=== PATIENT | female | born 1995 | race Caucasian/White ===

== ENCOUNTER 2017-12-23 00:56 | Inpatient (IN) ==
[2017-12-23] MEDS ORDERED: Acetaminophen 325 MG TABLET PO PRN (01:05)
[2017-12-23] MEDS ORDERED: Haloperidol Lactate 5 MG/ML VIAL IM PRN (01:05)
[2017-12-23] MEDS ORDERED: *HR* LORazepam 1 MG TABLET PO PRN (01:05)
[2017-12-23] MEDS ORDERED: *HR* LORazepam 2 MG/ML VIAL IM PRN (01:05)
[2017-12-23] MEDS ORDERED: Mag Hydrox/Al Hydrox/Simeth 30 ML UDC PO PRN (01:05)
[2017-12-23] MEDS ORDERED: MOM Conc 10 ML UD.LIQ PO PRN (01:05)
[2017-12-23] MEDS: traZODone 50 MG TABLET PO PRN ×2 (02:23→21:18)
[2017-12-23] MEDS: hydrOXYzine pamoate 25 MG CAPSULE PO PRN (02:23)
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
[2017-12-23] MEDS: Venlafaxine XR (24 HR) 37.5 MG CAP.ER.24H PO SCH (11:09)
[2017-12-23] MEDS: ARIPiprazole 2 MG TABLET PO SCH (21:18)
[2017-12-24] MEDS: Venlafaxine XR (24 HR) 37.5 MG CAP.ER.24H PO SCH (08:31)
--- NOTE | 2017-12-24 11:07 | Psychiatry Progress Note ---
Date of Encounter: 12/24/17 Time of Encounter: 10:50 Subjective Interval history: Patient seen today , case d/w treatment team and patient still depress and isolative and por coping skills. At present is withdrawn , slow speech , depress, no suicidal thoughts any today as per her. she is attending groups , needs to work on self esteem and coping skills. she denies side effects , sleep was better . will increase effexor to 75 mg , patient agreed with plan. Review of Systems Psychiatric: Reports: depression, anxiety, suicidal ideation, change in appetite , auditory hallucinations, visual hallucinations, difficulty concentrating, hopelessness, mood swings Results - Vital Signs Vital Signs: Temp Pulse Resp BP 97.4 F L 99 16 124/84 12/24/17 09:11 12/24/17 09:11 12/24/17 09:11 12/24/17 09:11 Assessment and Plan (1) Depression, major, recurrent, severe with psychosis Current visit: Yes Status: Acute Risks, benefits, side effects, alternatives discussed w/pt: Yes Patient agreeable to treatment: Yes (2) PTSD (post-traumatic stress disorder) Current visit: Yes Status: Chronic Risks, benefits, side effects, alternatives discussed w/pt: Yes Patient agreeable to treatment: Yes Consult Discharge Plan - Plan Referrals: [facility] [Outside] - 12/29/17 11:00 am (The above appointment is with Ashley for outpatient mental health counseling. Please bring photo ID and insurance card. ) Paola Goldman CNP [Primary Care Provider] - 12/29/17 2:30 pm (The above appointment is with Paola Goldman CNP for primary care and medications. Please bring photo ID and insurance card.) Psychiatry Exam - Constitutional Vitals: Temp Pulse Resp BP 97.4 F L 99 16 124/84 12/24/17 09:11 12/24/17 09:11 12/24/17 09:11 12/24/17 09:11 General appearance: obese - Musculoskeletal Gait: slow Station: other Strength & Tone: normal for patient - Psychiatric Patient Orientation: Yes Person, Yes Time, Yes Place Level of alertness: Alert Behavior: cooperative, withdrawn Psychomotor activity: Slowed Eye Contact: Minimal Contact Mood Description: Depressed, Anxious Affect description: constricted Speech Volume: Soft/Quiet Speech pattern: slowed Language & Vocabulary: consistent with education Thought Process: Intact Thought Content: Yes Guilt Attention Span Ability: Capable of Focused Attention Memory Description: Grossly Intact Patient Reliability: Reliable Historian Fund of knowledge: Yes average Intelligence Estimate: Average Judgment: Limited Insight: Partial
[2017-12-24] MEDS ORDERED: Venlafaxine XR (24 HR) 37.5 MG CAP.ER.24H PO ONE (11:15)
[2017-12-24] MEDS: traZODone 50 MG TABLET PO PRN (21:40)
[2017-12-24] MEDS: ARIPiprazole 2 MG TABLET PO SCH (21:40)
[2017-12-24] MEDS: hydrOXYzine pamoate 25 MG CAPSULE PO PRN (23:44)
[2017-12-25] MEDS ORDERED: Venlafaxine XR (24 HR) 37.5 MG CAP.ER.24H PO SCH (09:00)
[2017-12-25 09:34] VITALS: BP 132/75
--- NOTE | 2017-12-25 11:51 | Discharge Summary ---
Date of Encounter: 12/25/17 Time of Encounter: 11:48 Diagnosis - Discharge Diagnosis (1) Depression, major, recurrent, severe with psychosis Status: Acute Medications - Discharge Medications Prescriptions: ARIPiprazole [Abilify] 2 mg PO HS #7 tablet hydrOXYzine pamoate [HydrOXYzine Pamoate] 25 mg PO TID PRN #21 capsule PRN Reason: Anxiety traZODone [TraZODone] 50 mg PO HS PRN #7 tablet PRN Reason: Insomnia Venlafaxine XR (24 HR) [Effexor Xr] 75 mg PO DAILY #7 cap.er.24h Ferrous Gluconate 324 mg PO DAILY 12/23/17 [History] ARIPiprazole [Abilify] 2 mg PO HS #7 tablet 12/25/17 [Rx] Venlafaxine XR (24 HR) [Effexor Xr] 75 mg PO DAILY #7 cap.er.24h 12/25/17 [Rx] hydrOXYzine pamoate [HydrOXYzine Pamoate] 25 mg PO TID PRN #21 capsule 12/25/17 [Rx] traZODone [TraZODone] 50 mg PO HS PRN #7 tablet 12/25/17 [Rx] 3 Allergy/AdvReac Type Severity Reaction Status Date / Time No Known Drug Allergies Allergy none Verified 12/23/17 01:05 Provider Date of admission: 12/23/17 00:56 Primary care physician: PCP NONE Discharging clinician: Hellen Wooten Psychiatry Exam - Constitutional Vitals: Temp Pulse Resp BP 98.6 F 75 16 132/75 12/25/17 09:00 12/25/17 09:00 12/25/17 09:00 12/25/17 09:00 General appearance: age & developmentally appropriate, well-groomed, well- nourished - Musculoskeletal Gait: normal Station: relaxed Strength & Tone: normal for patient - Psychiatric Patient Orientation: Yes Person, Yes Time, Yes Place Level of alertness: Alert Behavior: calm, cooperative Psychomotor activity: Normal Eye Contact: Maintains Eye Contact Mood Description: Euthymic/stable Affect description: congruent with mood, full range Speech Volume: Normal Speech pattern: normal rate, normal rhythm, normal tone, fluent, spontaneous Language & Vocabulary: consistent with education Thought Process: Linear, Goal Oriented Thought Content: No Suicidal ideation, No Homicidal ideation, No Overt delusions Perceptual Disturbances: No Auditory hallucinations, No Visual hallucinations Attention Span Ability: Capable of Focused Attention Memory Description: Grossly Intact Patient Reliability: Reliable Historian Fund of knowledge: Yes abstraction ability, Yes aware of current events Intelligence Estimate: Average Judgment: Fair Insight: Partial Hospital Course Hospital course: Ms. Rangel is a 22 year old female who was admitted from her counselor's office secondary to SI. Client was started on Effexor and Abilify with positive results. Today she is denying SI. Asking for discharge. Staff spoke with mother and she is supportive. Client is future oriented. However, she has no motivation. Only motivated to get benefits. Does not want to work. Asking for disability and housing. Asking for hospital staff to tell [employer] that she is too impaired to work. Not interested in any kind of vocational assessment. Dependent personality characteristics. However, she does not present as if she is a danger to self or others at this time. Denies SI/HI ideation, plan, or intent. No evidence of psychosis. - Time Spent with Patient Total time spent providing and/or coordinating discharge services: Assessment and Plan - Patient/Caregiver Discharge Instructions Activity: resume usual activities as tolerated Diet: regular diet - Follow up Plan Follow up with: Kiel Britton [facility] [Outside] - 12/29/17 11:00 am (The above appointment is with Ashley for outpatient mental health counseling. Please bring photo ID and insurance card. ) Paola Goldman CNP [Advanced Practice Nurse] - 12/29/17 2:30 pm (The above appointment is with Paola Goldman CNP for primary care and medications. Please bring photo ID and insurance card.) Overall status at discharge: Stable Disposition: Home, Self-Care Quality - Multiple Antipsychotics Patient discharged on 2 or more antipsychotic medications: No Procedures - Procedures Procedures: Medication Management, Crisis Stabilization, Supportive Therapy, Group Therapy
== END 2017-12-25 15:20 | disposition home or self-care (01) | DRG 751 ==
LOC: 1ANU 00:56
PROVIDERS: ADMIT Psychiatry & Neurology Psychiatry; ATTEND Psychiatry & Neurology Psychiatry

== ENCOUNTER 2018-01-27 17:51 | Inpatient (IN) ==
[2018-01-27 18:45] LABS: Basophils # 0.1 K/mcL (0.0-0.2); Basophils % 0.4 %; Eosinophils # 0.5 K/mcL (0.0-0.6); Eosinophils % 3.4 %; Hematocrit 35.6 % (35.3-44.9); Immature Granulocytes % 0.6 % (0-4); Lymphocytes % 22.2 %; Mean Corpuscular HGB Conc 30.9 g/dL (31.6-35.5); Mean Corpuscular Hemoglobin 22.1 pg (28.0-33.3); Mean Corpuscular Volume 71.6 fL (83.0-100.0); Mean Platelet Volume 9.9 fL (9.4-12.4); Monocytes # 0.6 K/mcL (0.0-1.3); Monocytes % 4.6 %; Neutrophils # 9.3 K/mcL (1.6-8.9); Platelet Count 379 K/mcL (140-400); Red Blood Count 4.97 M/mcL (3.82-4.97); Red Cell Distribution Width 17.9 % (11.5-14.5); Segmented Neutrophils % 68.8 %
[2018-01-27 18:51] LABS: Bilirubin,Urine Negative (Negative); Blood,Urine Negative (Negative); Clarity,Urine Clear (Clear); Color,Urine Yellow (Yellow); Glucose,Urine (UA) Normal (Normal); Ketones,Urine Negative (Negative); Leukocyte Esterase,Urine Negative (Negative); Nitrite,Urine Negative (Negative); Protein,Urine Negative (Neg-Trace); Specific Gravity,Urine 1.026 (1.010-1.025); Urobilinogen,Urine Normal (Normal)
[2018-01-27 19:02] LABS: Acetaminophen < 10 mcg/mL (10-20); BUN/Creatinine Ratio 17 (6-26); Blood Urea Nitrogen 13 mg/dL (6-20); Calcium 9.5 mg/dL (8.6-10.3); Carbon Dioxide 25 mEq/L (23-29); Chloride 105 mEq/L (98-107); Ethanol < 10 mg/dL (Less than 10); Glucose 122 mg/dL (70-105); Osmolality,Calculated 287 (280-300); Potassium 3.8 mEq/L (3.5-5.1); Salicylate < 2.5 mg/dL (15.0-30.0); Sodium 138 mEq/L (136-145); eGFR For Non-African Americans > 60 (> 60)
[2018-01-27 19:44] LABS: Amphetamine Screen,Urine Negative ng/mL (Cutoff=1000); Barbiturate Screen,Urine Negative ng/mL (Cutoff=200); Benzodiazepines Screen,Urine Negative ng/mL (Cutoff=200); Cannabinoid Screen,Urine Negative ng/mL (Cutoff = 50); Cocaine Screen,Urine Negative ng/mL (Cutoff= 300); Opiate Screen,Urine Negative ng/mL (Cutoff=300); Phencyclidine Screen,Urine Negative ng/mL (Cutoff=25)
--- NOTE | 2018-01-27 21:23 | Emergency Department Note ---
Disposition Clinical Impression: Suicidal ideation, Hallucination Disposition: Admitted As Inpatient Time of Disposition: 22:44 Psych HPI - General Chief Complaint: ED Psychiatric Symptoms Stated Complaint: psych eval/self harm Time Seen by Provider: 01/27/18 18:20 Source: patient, EMS Nursing Notes Reviewed: Yes Vital Signs Reviewed: Yes - History of Present Illness HPI Narrative: 22-year-old female presents emergency department with concern for self-harm. Patient states that she cut herself on her left upper extremity today. Patient states that she is hearing a lot of voices that are toner both good and bad things. They are not specifically commanding her to do anything however. She does report having suicidal ideations. No homicidal ideations at this time. No visual hallucinations. - Related Data Home Medications Medication Instructions Recorded Confirmed Ferrous Gluconate 324 mg PO DAILY 12/23/17 01/27/18 Previous Rx's Medication Instructions Recorded ARIPiprazole [Abilify] 2 mg PO HS #7 tablet 12/25/17 Venlafaxine XR (24 HR) [Effexor Xr] 75 mg PO DAILY #7 cap.er.24h 12/25/17 hydrOXYzine pamoate [HydrOXYzine 25 mg PO TID PRN #21 capsule 12/25/17 Pamoate] traZODone [TraZODone] 50 mg PO HS PRN #7 tablet 12/25/17 Allergies Allergy/AdvReac Type Severity Reaction Status Date / Time No Known Drug Allergies Allergy none Verified 12/23/17 01:05 All systems ED: reviewed and negative except as stated. Review of Systems: As Per HPI Constitutional: Denies: fever Cardiovascular: Denies: chest pain Respiratory: Denies: cough Gastrointestinal: Denies: abdominal pain Genitourinary: Denies: urgency, dysuria, frequency Musculoskeletal: Denies: back pain Neurological: Denies: headache Past Medical History - Past Medical History Medical history: Reports: other Psychiatric history: Reports: anxiety, depression, PTSD, prior suicide attempt, schizophrenia, previous psychiatric hospitalization - Social History Smoking Status: Current every day smoker Smokeless Tobacco Status: No Alcohol use: Reports: rarely Drug use: Reports: marijuana Physical Exam - General Limitations: no limitations General appearance: alert, in no apparent distress - Head Head exam: normocephalic - Eye Eye exam: Present: EOMI - ENT ENT exam: normal oropharynx - Neck Neck exam: Present: trachea midline - Chest Chest inspection: Present: symmetric chest wall rise - Respiratory Respiratory exam: Present: normal lung sounds bilaterally. Absent: respiratory distress - Cardiovascular Cardiovascular exam: Present: normal rhythm, tachycardia, normal heart sounds - Abdominal Exam Abdominal exam: Present: soft, Non-Tender. Absent: distention, guarding, rebound, rigidity - Extremities Exam Extremities exam: Present: other (Appears to be scars on the left and upper arm that are healed. There is a small abrasion on the left upper extremity. Left upper extremities are neurovascular intact.) Course Vital Signs Temperature 98.3 F 01/27/18 17:54 Pulse Rate 104 01/27/18 17:54 Respiratory Rate 16 01/27/18 17:54 Blood Pressure 133/95 01/27/18 17:54 O2 Sat by Pulse Oximetry 98 01/27/18 17:54 Temperature 97.0 F L 01/27/18 22:29 Pulse Rate 106 01/27/18 22:10 Respiratory Rate 20 01/27/18 22:10 Blood Pressure 151/83 01/27/18 22:10 O2 Sat by Pulse Oximetry 98 01/27/18 22:10 Oxygen Delivery Oxygen Delivery Room Air Psych - MDM Narrative Medical decision making narrative: 22-year-old female presents emergency department with chief complaint of suicidal ideations, self harm. Patient was offered tetanus shot but declines it. Left upper extremity where she cut her arm did not have an area that could be sutured. We did place pink slip on the patient. Patient has mild leukocytosis of 13.5, do not suspect any infection at this time as she is afebrile and not having any symptoms of cough, sputum production, nausea, vomiting, dysuria, urinary frequeny, urinary urgency. Patient had negative Tylenol level. Salicylates were negative. Kidney function was good. Urinalysis not reveal any evidence of infection. Ethanol level was normal. I psychiatric team came down to evaluate patient. They agree to accept her for admission. Patient hemodynamically stable and does not appear to be in any distress at time of admission. Vital Signs Temperature 98.3 F 01/27/18 17:54 Pulse Rate 104 01/27/18 17:54 Respiratory Rate 16 01/27/18 17:54 Blood Pressure 133/95 01/27/18 17:54 O2 Sat by Pulse Oximetry 98 01/27/18 17:54 Temperature 97.0 F L 01/27/18 22:29 Pulse Rate 106 01/27/18 22:10 Respiratory Rate 20 01/27/18 22:10 Blood Pressure 151/83 01/27/18 22:10 O2 Sat by Pulse Oximetry 98 01/27/18 22:10 Oxygen Delivery Oxygen Delivery Room Air - Lab Data Result diagrams: 01/27/18 18:33 01/27/18 18:33 Lab Results 01/27/18 01/27/18 01/27/18 Range/Units 18:33 18:33 18:39 WBC 13.5 H (4.3-11.1) K/mcL RBC 4.97 (3.82-4.97) M/mcL Hgb 11.0 L (11.5-15.4) g/dL Hct 35.6 (35.3-44.9) % MCV 71.6 L (83.0-100.0) fL MCH 22.1 L (28.0-33.3) pg MCHC 30.9 L (31.6-35.5) g/dL RDW 17.9 H (11.5-14.5) % Plt Count 379 (140-400) K/mcL MPV 9.9 (9.4-12.4) fL Immature Gran % 0.6 (0-4) % Seg Neutrophils % 68.8 % Lymphocytes % 22.2 % Monocytes % 4.6 % Eosinophils % 3.4 % Basophils % 0.4 % Neutrophils # 9.3 H (1.6-8.9) K/mcL Lymphocytes # 3.0 (0.6-4.6) K/mcL Monocytes # 0.6 (0.0-1.3) K/mcL Eosinophils # 0.5 (0.0-0.6) K/mcL Basophils # 0.1 (0.0-0.2) K/mcL Sodium 138 (136-145) mEq/L Potassium 3.8 (3.5-5.1) mEq/L Chloride 105 (98-107) mEq/L Carbon Dioxide 25 (23-29) mEq/L BUN 13 (6-20) mg/dL Creatinine 0.78 (0.60-1.20) mg/dL Est GFR ( Amer) > 60 (> 60) Est GFR (Non-Af Amer) > 60 (> 60) BUN/Creatinine Ratio 17 (6-26) Glucose 122 H (70-105) mg/dL Calculated Osmolality 287 (280-300) Calcium 9.5 (8.6-10.3) mg/dL Urine Color Yellow (Yellow) Urine Clarity Clear (Clear) Urine pH 6.0 (5.0-8.0) pH Units Ur Specific [place] 1.026 H (1.010-1.025) Urine Protein Negative (Neg-Trace) mg/dL Urine Glucose (UA) Normal (Normal) mg/dL Urine Ketones Negative (Negative) mg/dL Urine Blood Negative (Negative) Urine Nitrite Negative (Negative) Urine Bilirubin Negative (Negative) Urine Urobilinogen Normal (Normal) mg/dL Ur Leukocyte Esterase Negative (Negative) Urine Test (Negative) Salicylates < 2.5 L (15.0-30.0) mg/dL Urine Opiates Screen (Gnpovk=183) ng/mL Acetaminophen < 10 L (10-20) mcg/mL Ur Barbiturates Screen (Oskwjh=656) ng/mL Ur Phencyclidine Scrn (Cutoff=25) ng/mL Ur Amphetamines Screen (Pbelgr=4326) ng/mL U Benzodiazepines Scrn (Bbnmdb=455) ng/mL Urine Cocaine Screen (Cutoff= 300) ng/mL U Marijuana (THC) Screen (Cutoff = 50) ng/mL Ur Drug Screen Interp Ethyl Alcohol < 10 (Less than 10) mg/dL 01/27/18 01/27/18 Range/Units 18:39 18:39 WBC (4.3-11.1) K/mcL RBC (3.82-4.97) M/mcL Hgb (11.5-15.4) g/dL Hct (35.3-44.9) % MCV (83.0-100.0) fL MCH (28.0-33.3) pg MCHC (31.6-35.5) g/dL RDW (11.5-14.5) % Plt Count (140-400) K/mcL MPV (9.4-12.4) fL Immature Gran % (0-4) % Seg Neutrophils % % Lymphocytes % % Monocytes % % Eosinophils % % Basophils % % Neutrophils # (1.6-8.9) K/mcL Lymphocytes # (0.6-4.6) K/mcL Monocytes # (0.0-1.3) K/mcL Eosinophils # (0.0-0.6) K/mcL Basophils # (0.0-0.2) K/mcL Sodium (136-145) mEq/L Potassium (3.5-5.1) mEq/L Chloride (98-107) mEq/L Carbon Dioxide (23-29) mEq/L BUN (6-20) mg/dL Creatinine (0.60-1.20) mg/dL Est GFR ( Amer) (> 60) Est GFR (Non-Af Amer) (> 60) BUN/Creatinine Ratio (6-26) Glucose (70-105) mg/dL Calculated Osmolality (280-300) Calcium (8.6-10.3) mg/dL Urine Color (Yellow) Urine Clarity (Clear) Urine pH (5.0-8.0) pH Units Ur Specific [place] (1.010-1.025) Urine Protein (Neg-Trace) mg/dL Urine Glucose (UA) (Normal) mg/dL Urine Ketones (Negative) mg/dL Urine Blood (Negative) Urine Nitrite (Negative) Urine Bilirubin (Negative) Urine Urobilinogen (Normal) mg/dL Ur Leukocyte Esterase (Negative) Urine Test Negative (Negative) Salicylates (15.0-30.0) mg/dL Urine Opiates Screen Negative (Hmswjn=604) ng/mL Acetaminophen (10-20) mcg/mL Ur Barbiturates Screen Negative (Vmtcpm=366) ng/mL Ur Phencyclidine Scrn Negative (Cutoff=25) ng/mL Ur Amphetamines Screen Negative (Akbaxw=6874) ng/mL U Benzodiazepines Scrn Negative (Rfngeh=393) ng/mL Urine Cocaine Screen Negative (Cutoff= 300) ng/mL U Marijuana (THC) Screen Negative (Cutoff = 50) ng/mL Ur Drug Screen Interp See Below Ethyl Alcohol (Less than 10) mg/dL Psychiatric Medical Clearance - Medical Clearance Checklist Medical History: No Social History Section defined Current Vitals: Last Vital Signs Temp 97.0 F L 01/27/18 22:29 Pulse 106 01/27/18 22:10 Resp 20 01/27/18 22:10 BP 151/83 01/27/18 22:10 Pulse Ox 98 01/27/18 22:10 Psychiatric Lab Panel: Drug Levels and Toxicity 01/27/18 01/27/18 18:33 18:39 Urine Opiates Screen Negative Acetaminophen < 10 L Ur Barbiturates Screen Negative Ur Phencyclidine Scrn Negative Ur Amphetamines Screen Negative U Benzodiazepines Scrn Negative Urine Cocaine Screen Negative U Marijuana (THC) Screen Negative Ethyl Alcohol < 10 Abnormal Labs: Abnormal lab results WBC 13.5 K/mcL (4.3-11.1) H 01/27/18 18:33 Hgb 11.0 g/dL (11.5-15.4) L 01/27/18 18:33 MCV 71.6 fL (83.0-100.0) L 01/27/18 18:33 MCH 22.1 pg (28.0-33.3) L 01/27/18 18:33 MCHC 30.9 g/dL (31.6-35.5) L 01/27/18 18:33 RDW 17.9 % (11.5-14.5) H 01/27/18 18:33 Neutrophils # 9.3 K/mcL (1.6-8.9) H 01/27/18 18:33 Glucose 122 mg/dL (70-105) H 01/27/18 18:33 Ur Specific [place] 1.026 (1.010-1.025) H 01/27/18 18:39 Salicylates < 2.5 mg/dL (15.0-30.0) L 01/27/18 18:33 Acetaminophen < 10 mcg/mL (10-20) L 01/27/18 18:33 Attestation Statement - Attestation Attestation: Patient was seen with resident physician. I reviewed the history, physical, assessment and plan, and agree with the findings. I also personally evaluated this patient and had [id number] time with this patient. 22-year-old female presents emergency Department increasing hallucinations and cutting. Patient is a history of same. Patient denies suicidal ideation to me but did acknowledge she had some to resident physician. She does acknowledge increased hallucinations. She has no homicidal ideation either. Her cutting is very superficial and typically on her left forearm. Another symptomatically complaints at this time. Review systems as above remainder negative. Physical exam vital signs are stable. ENT is unremarkable. Heart regular rhythm and rate. Lungs clear. Abdomen soft nontender. Extremities unremarkable. Neurologically intact. Psych depressed. ED course laboratory testing was essentially unremarkable. We contacted [facility] he did not evaluation. They will ultimately determine disposition for the patient. Hemodynamically she remained stable from a medical perspective and in no acute distress. Patient did have an incidental finding of a mildly elevated white cell count of 13.5. At this point and I will believe this represents infection other abnormalities is likely stress response. Other should not impact patient's ability to be successfully treated psychiatric unit. After one a evaluation they did want to admit the patient. I agree with the resident physician assessment and plan.
[2018-01-27] MEDS ORDERED: Haloperidol Lactate 5 MG/ML VIAL IM PRN (22:26)
[2018-01-27] MEDS ORDERED: Mag Hydrox/Al Hydrox/Simeth 30 ML UDC PO PRN (22:26)
[2018-01-27] MEDS ORDERED: Ibuprofen 400 MG TABLET PO PRN (22:26)
[2018-01-27] MEDS ORDERED: *HR* LORazepam 2 MG/ML VIAL IM PRN (22:26)
[2018-01-27] MEDS ORDERED: MOM Conc 10 ML UD.LIQ PO PRN (22:26)
[2018-01-27] MEDS ORDERED: *HR* LORazepam 1 MG TABLET PO PRN (22:26)
[2018-01-27] MEDS ORDERED: traZODone 50 MG TABLET PO PRN (22:28)
[2018-01-27] MEDS ORDERED: hydrOXYzine pamoate 25 MG CAPSULE PO PRN (22:28)
[2018-01-28] MEDS ORDERED: Venlafaxine XR (24 HR) 75 MG CAP.ER.24H PO SCH (09:00)
[2018-01-28] MEDS ORDERED: ARIPiprazole 2 MG TABLET PO SCH ×2 (14:06→21:00)
[2018-01-28] MEDS ORDERED: traZODone 50 MG TABLET PO PRN (14:07)
--- NOTE | 2018-01-28 14:19 | Psychiatry Progress Note ---
Date of Encounter: 01/28/18 Time of Encounter: 14:00 Review of Systems Psychiatric: Reports: depression, memory loss, irritability Results - Vital Signs Vital Signs: Temp Pulse Resp BP Pulse Ox 97.2 F L 84 16 119/72 98 01/28/18 09:00 01/28/18 09:00 01/28/18 09:00 01/28/18 09:00 01/27/18 22:10 Consult Discharge Plan - Plan Referrals: [facility] [Outside] - 02/23/18 3:30 pm (The above appointment is with Sera Lobo,for psychiatric assessment and medication management. Please bring photo ID and insurance card to your appointment.) Psychiatry Exam - Constitutional Vitals: Temp Pulse Resp BP Pulse Ox 97.2 F L 84 16 119/72 98 01/28/18 09:00 01/28/18 09:00 01/28/18 09:00 01/28/18 09:00 01/27/18 22:10 General appearance: age & developmentally appropriate, well-groomed - Musculoskeletal Gait: normal Station: other Strength & Tone: normal for patient - Psychiatric Patient Orientation: Yes Person, Yes Time, Yes Place Level of alertness: Alert Behavior: calm, suspicious, withdrawn Psychomotor activity: Slowed Eye Contact: Maintains Eye Contact Mood Description: Depressed Affect description: congruent with mood, incongruent with mood Speech Volume: Normal Speech pattern: normal rate Language & Vocabulary: consistent with education Thought Process: Intact Perceptual Disturbances: Yes Auditory hallucinations Attention Span Ability: Capable of Focused Attention Patient Reliability: Reliable Historian Fund of knowledge: Yes abstraction ability Intelligence Estimate: Average
--- NOTE | 2018-01-28 14:32 | Psychiatry History & Physical ---
Date of Encounter: 01/28/18 Time of Encounter: 14:00 History of Present Illness Patient Stated Chief Complaint: i want to change my med Medicare Admission Attestation: For traditional Medicare patients the provided hospital inpatient services are reasonable and necessary and in the case of services not specified as inpatient -only under 42 CFR 419.22 (n), that they are appropriately provided as inpatient services in accordance 42 CFR 412.3. For Critical Access Hospital the patient may reasonably be expected to be discharged or transferred to a hospital within 96 hours after admission to the Critical Access Hospital. Admitted From: Emergency Dept Plans for Post Hospital Care: Home History of Present Illness: Ms. Rangel is a 22 year old female . Patient states chief complaint is that she feels that she needs her medicines changed. She does not feel that they are working. She came after cutting at the recommendation of the local clinic. 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 The patient has had depressive symptoms suicidal ideation and hearing voices The patient was at the [facility] clinic on respite and was discovered to be cutting her left forearm. The patient denies that this was a suicide attempt but was somewhat despondent about her current situation and future plans. Today the patient presents and says that she is nervous on the unit she does not feel that she is doing well and should like to go back to [facility]. The patient is also indicated that she would like to and change her medicines. Specifically she is on Effexor XR 75 mg every morning Abilify 2 mg every at bedtime and trazodone 50 mg daily at bedtime. The patient has been told that she has bipolar disorder PTSD major depression. I asked her several questions and this the patient responded in the affirmative to 9 of 9 borderline personality disorder traits. This cross-sectional analysis suggests that she has some personality traits but does not necessarily indicate that she has the personality disorder. The patient is involved in dialectical behavioral therapy and is trying to acquire some coping skills. She notes depressive symptoms at this time but no plans to kill herself. She notes hearing voices but no command hallucinations to harm herself. He reports no plans to harm herself on the unit. And she would like to transfer to an outpatient level of care she notes no side effects or current medicines. Past Med Surg Social Fam HX - Past Medical History Medical history: other - Past Psychiatric History Psychiatric history: Reports: previous psychiatric hospitalization Family psychiatric history: Unknown Family History of Suicide: Unknown - Social History Smoking Status: Current every day smoker Smokeless Tobacco Status: No Alcohol use: rarely Drug use: marijuana Occupational status: student Current living situation: Other Activity Level: Independent ambulation Recent Out of Country Travel Within the Last 8 Weeks: No Exposure or Possible Exposure to Illness During Travel: No - Family History Father Hx Family Musculoskeletal Disorders: Yes (back issues) Medications & Allergies Ferrous Gluconate 324 mg PO DAILY 12/23/17 [History] ARIPiprazole [Abilify] 2 mg PO HS #7 tablet 12/25/17 [Rx] Venlafaxine XR (24 HR) [Effexor Xr] 75 mg PO DAILY #7 cap.er.24h 12/25/17 [Rx] hydrOXYzine pamoate [HydrOXYzine Pamoate] 25 mg PO TID PRN #21 capsule 12/25/17 [Rx] traZODone [TraZODone] 50 mg PO HS PRN #7 tablet 12/25/17 [Rx] 3 Allergy/AdvReac Type Severity Reaction Status Date / Time No Known Drug Allergies Allergy none Verified 12/23/17 01:05 Review of Systems Psychiatric: Reports: depression, anxiety, difficulty concentrating, hopelessness, mood swings Exam - HEENT Head exam IM: Present: atraumatic, normal inspection, normocephalic Eye exam IM: Present: EOMI ENT exam IM: Present: mucous membranes dry - Neurological Neurological exam: Present: CN II-XII intact - Additional Information Additional Information: obese female - Constitutional Vitals: Temp Pulse Resp BP Pulse Ox 97.2 F L 84 16 119/72 98 01/28/18 09:00 01/28/18 09:00 01/28/18 09:00 01/28/18 09:00 01/27/18 22:10 General appearance: age & developmentally appropriate, obese - Musculoskeletal Gait: normal Station: relaxed Strength & Tone: normal for patient - Psychiatric Patient Orientation: Yes Person, Yes Time, Yes Place Level of alertness: Alert Behavior: nervous, withdrawn Psychomotor activity: Slowed Eye Contact: Maintains Eye Contact Mood Description: Depressed, Anxious Affect description: congruent with mood, full range, dysphoric Speech Volume: Normal Speech pattern: normal rate, normal rhythm, normal tone, fluent, spontaneous Language & Vocabulary: consistent with education Thought Process: Linear, Goal Oriented Thought Content: No Suicidal ideation, No Homicidal ideation, No Overt delusions Perceptual Disturbances: Yes Auditory hallucinations, No Visual hallucinations Attention Span Ability: Capable of Focused Attention Memory Description: Grossly Intact Patient Reliability: Reliable Historian Fund of knowledge: Yes abstraction ability, Yes average, Yes aware of current events Intelligence Estimate: Average Judgment: Fair Insight: Partial Results - Labs Labs: Laboratory Last Values WBC 13.5 K/mcL (4.3-11.1) H 01/27/18 18:33 RBC 4.97 M/mcL (3.82-4.97) 01/27/18 18:33 Hgb 11.0 g/dL (11.5-15.4) L 01/27/18 18:33 Hct 35.6 % (35.3-44.9) 01/27/18 18:33 MCV 71.6 fL (83.0-100.0) L 01/27/18 18: MCH 22.1 pg (28.0-33.3) L 01/27/18 18:33 MCHC 30.9 g/dL (31.6-35.5) L 01/27/18 18:33 RDW 17.9 % (11.5-14.5) H 01/27/18 18:33 Plt Count 379 K/mcL (140-400) 01/27/18 18:33 MPV 9.9 fL (9.4-12.4) 01/27/18 18:33 Immature Gran % 0.6 % (0-4) 01/27/18 18:33 Seg Neutrophils % 68.8 % 01/27/18 18:33 Lymphocytes % 22.2 % 01/27/18 18:33 Monocytes % 4.6 % 01/27/18 18:33 Eosinophils % 3.4 % 01/27/18 18:33 Basophils % 0.4 % 01/27/18 18:33 Neutrophils # 9.3 K/mcL (1.6-8.9) H 01/27/18 18:33 Lymphocytes # 3.0 K/mcL (0.6-4.6) 01/27/18 18:33 Monocytes # 0.6 K/mcL (0.0-1.3) 01/27/18 18:33 Eosinophils # 0.5 K/mcL (0.0-0.6) 01/27/18 18:33 Basophils # 0.1 K/mcL (0.0-0.2) 01/27/18 18:33 Sodium 138 mEq/L (136-145) 01/27/18 18:33 Potassium 3.8 mEq/L (3.5-5.1) 01/27/18 18:33 Chloride 105 mEq/L (98-107) 01/27/18 18:33 Carbon Dioxide 25 mEq/L (23-29) 01/27/18 18:33 BUN 13 mg/dL (6-20) 01/27/18 18:33 Creatinine 0.78 mg/dL (0.60-1.20) 01/27/18 18:33 Est GFR ( Amer) > 60 (> 60) 01/27/18 18:33 Est GFR (Non-Af Amer) > 60 (> 60) 01/27/18 18:33 BUN/Creatinine Ratio 17 (6-26) 01/27/18 18: Glucose 122 mg/dL (70-105) H 01/27/18 18:33 Calculated Osmolality 287 (280-300) 01/27/18 18:33 Calcium 9.5 mg/dL (8.6-10.3) 01/27/18 18:33 Urine Color Yellow (Yellow) 01/27/18 18:39 Urine Clarity Clear (Clear) 01/27/18 18:39 Urine pH 6.0 pH Units (5.0-8.0) 01/27/18 18:39 Ur Specific [place] 1.026 (1.010-1.025) H 01/27/18 18:39 Urine Protein Negative mg/dL (Neg-Trace) 01/27/18 18:39 Urine Glucose (UA) Normal mg/dL (Normal) 01/27/18 18:39 Urine Ketones Negative mg/dL (Negative) 01/27/18 18:39 Urine Blood Negative (Negative) 01/27/18 18:39 Urine Nitrite Negative (Negative) 01/27/18 18:39 Urine Bilirubin Negative (Negative) 01/27/18 18:39 Urine Urobilinogen Normal mg/dL (Normal) 01/27/18 18:39 Ur Leukocyte Esterase Negative (Negative) 01/27/18 18:39 Urine Test Negative (Negative) 01/27/18 18:39 Salicylates < 2.5 mg/dL (15.0-30.0) L 01/27/18 18:33 Urine Opiates Screen Negative ng/mL (Ekvfte=701) 01/27/18 18:39 Acetaminophen < 10 mcg/mL (10-20) L 01/27/18 18:33 Ur Barbiturates Screen Negative ng/mL (Wdjuzk=631) 01/27/18 18:39 Ur Phencyclidine Scrn Negative ng/mL (Cutoff=25) 01/27/18 18:39 Ur Amphetamines Screen Negative ng/mL (Xvubho=3910) 01/27/18 18:39 U Benzodiazepines Scrn Negative ng/mL (Htqqgb=943) 01/27/18 18:39 Urine Cocaine Screen Negative ng/mL (Cutoff= 300) 01/27/18 18:39 U Marijuana (THC) Screen Negative ng/mL (Cutoff = 50) 01/27/18 18:39 Ur Drug Screen Interp See Below 01/27/18 18:39 Ethyl Alcohol < 10 mg/dL (Less than 10) 01/27/18 18:33
[2018-01-28] MEDS ORDERED: ARIPiprazole 5 MG TABLET PO SCH (21:00)
[2018-01-29] MEDS ORDERED: Nicotine 14 MG PATCH.TD24 TD SCH (09:00)
[2018-01-29] MEDS ORDERED: Venlafaxine XR (24 HR) 150 MG CAP.ER.24H PO SCH (09:00)
[2018-01-29 10:48] VITALS: BP 128/86
--- NOTE | 2018-01-29 10:58 | Discharge Summary ---
Date of Encounter: 01/29/18 Time of Encounter: 10:45 Diagnosis - Discharge Diagnosis (1) Depression, major, recurrent, severe with psychosis Status: Acute (2) Suicidal ideation Status: Resolved Medications - Discharge Medications Prescriptions: ARIPiprazole [Abilify] 5 mg PO HS 30 Days #30 tablet traZODone [TraZODone] 100 mg PO HS PRN 30 Days #30 tablet PRN Reason: Insomnia Venlafaxine XR (24 HR) [Effexor Xr] 150 mg PO DAILY 30 Days #30 cap.er.24h Ferrous Gluconate 324 mg PO DAILY 12/23/17 [History] hydrOXYzine pamoate [HydrOXYzine Pamoate] 25 mg PO TID PRN #21 capsule 12/25/17 [Rx] ARIPiprazole [Abilify] 5 mg PO HS 30 Days #30 tablet 01/29/18 [Rx] Venlafaxine XR (24 HR) [Effexor Xr] 150 mg PO DAILY 30 Days #30 cap.er.24h 01/29 [Rx] traZODone [TraZODone] 100 mg PO HS PRN 30 Days #30 tablet 01/29/18 [Rx] 3 Allergy/AdvReac Type Severity Reaction Status Date / Time No Known Drug Allergies Allergy none Verified 12/23/17 01:05 Provider Date of admission: 01/27/18 22:15 Primary care physician: PCP NONE Discharging clinician: Cade Garcia Psychiatry Exam - Constitutional Vitals: Temp Pulse Resp BP Pulse Ox 97.3 F L 83 16 128/86 98 01/29/18 09:00 01/29/18 09:00 01/29/18 09:00 01/29/18 09:00 01/27/18 22:10 General appearance: age & developmentally appropriate, well-groomed, well- nourished - Musculoskeletal Gait: normal Station: relaxed Strength & Tone: normal for patient - Psychiatric Patient Orientation: Yes Person, Yes Time, Yes Place Level of alertness: Alert Behavior: calm, cooperative Psychomotor activity: Normal Eye Contact: Maintains Eye Contact Mood Description: Anxious Affect description: congruent with mood, full range Speech Volume: Normal Speech pattern: normal rate, normal rhythm, normal tone, fluent, spontaneous Language & Vocabulary: consistent with education Thought Process: Linear, Goal Oriented Thought Content: No Suicidal ideation, No Homicidal ideation, No Overt delusions Perceptual Disturbances: No Auditory hallucinations, No Visual hallucinations Attention Span Ability: Capable of Focused Attention Memory Description: Grossly Intact Patient Reliability: Reliable Historian Fund of knowledge: Yes abstraction ability, Yes aware of current events Intelligence Estimate: Average Judgment: Fair Insight: Partial Hospital Course Hospital course: Ms. Rangel is a 22 year old female The patient is a 22-year-old -[place] female. She was residing at the [facility] [place]. The patient had presented for suicidal ideation. On admission to the unit she felt unsafe and her chief complaint was I do not feel safe here. History of present illness patient had a variety of mounting concerns over her placement in the [facility]. She became despondent about these had an increase in depressive symptoms and cut her wrist. The patient has several identified voices that are long-standing. The patient had depressive symptoms and did not also had some symptoms that are the target of dialectical behavioral therapy. The patient has a workbook and has been working on some of these she was able to identify minimal coping skills. After adjustment on the unit she was free of suicidal ideation she agreed to the following changes increase trazodone to 100 mg daily at bedtime Increase Effexor to 150 mg every morning Increase Abilify to 5 mg daily at bedtime or every morning depending on tolerability. The patient was seen on the day of discharge and tolerated the medicines without difficulty she did not think that she slept as well on trazodone but was told that 100 mg should be continued as she had a favorable response to 50 mg per Arrangements are made for her to return to the [facility] and for follow-up. The patient was informed of the medications and their side effects. - Time Spent with Patient Total time spent providing and/or coordinating discharge services: Less than 30 minutes Assessment and Plan - Patient/Caregiver Discharge Instructions Activity: resume usual activities as tolerated Diet: regular diet - Follow up Plan Follow up with: [facility] [Outside] - 02/23/18 3:30 pm (You are returning into mental health respite at [facility] on discharge from the hospital. While there, you will be seen daily by the clinic counselors and case preparer and liner, both individually and in group. The above appointment is with Sera Lobo,for psychiatric assessment and medication management services at [facility]. ) Functional capacity at discharge: independent ambulation Overall status at discharge: patient is back to baseline Disposition: Home, Self-Care Quality - Multiple Antipsychotics Patient discharged on 2 or more antipsychotic medications: No Procedures - Procedures Procedures: Medication Management, Crisis Stabilization, Supportive Therapy, Group Therapy, Psychoeducational Therapy
== END 2018-01-29 12:20 | disposition home or self-care (01) | DRG 751 ==
LOC: EMEROO 17:51 → 1ANU 22:15
PROVIDERS: ADMIT Psychiatry & Neurology Forensic Psychiatry; ATTEND Psychiatry & Neurology Forensic Psychiatry